=== PATIENT | female | born 1980 | race Caucasian/White ===

== ENCOUNTER 2017-02-11 20:56 | Emergency (ER) | payer SELFPAY ==
[~2017-02-11] VITALS: Ht 170.2 cm; Wt 70.0 kg
[~2017-02-11 20:56] MED LIST: CLIN150 PO; CYMB30CA PO; HYDR-3535 PO
[2017-02-11 20:59] VITALS: BP 146/86; PULSE 104; RESP 26; TEMP 98.6; O2SAT 81
[2017-02-11 21:05] VITALS: BP 145/80; PULSE 98; RESP 22; O2SAT 96
[2017-02-11 21:06] VITALS: O2SAT 97
--- NOTE | 2017-02-11 21:08 | PD ---
HPI . Shortness of breath Chief Complaint: shortness of breath Time Seen by Provider: 21:02 Travel History International Travel<30 days: No Contact w/Intl Traveler<30days: No History of Present Illness HPI Patient presents to us via private vehicle for shortness of breath. Patient reports a history of asthma. She has had symptoms last couple weeks. She states that she used an old inhaler with some relief of her symptoms. However, the inhaler has been empty for a week or so. Her symptoms have waxed and waned but became acutely worse today. She comes in complaining with severe dyspnea and with an initial oxygen saturation of about 80% on room air. Patient denies fever and denies sputum production. The patient is unaware of any exacerbating or relieving factors. 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) Past Surgical History Eye Surgery: Yes (tumor left eye as a child) Other Surgery: Yes (right arm r/t cat scratch ) Social History Alcohol Use: Yes (mix drinks occas.) Tobacco Use: Yes (4 cigs in a week) Substance Use: No Allergies-Medications (Allergen,Severity, Reaction): Coded Allergies: Penicillin (Unverified Allergy, Severe, vomiting, 12/19/15) Sulfa (Unverified Allergy, Severe, hives, 12/19/15) Reported Meds & Prescriptions Reported Meds & Active Scripts Active Lortab 10 mg/325 mg (Hydrocodone/Acetaminophen 10 mg/325 mg) 1 Tab 1 Tab PO Q4H PRN Cleocin (Clindamycin HCl) 150 Mg Cap 300 Mg PO Q8 10 Days Reported Cymbalta (Duloxetine HCl) 30 Mg Cap 60 Mg PO DAILY Review of Systems Except as stated in HPI: all other systems reviewed are Neg General / Constitutional: No: Fever, Chills Respiratory: Positive: Cough, Shortness of Breath, Wheezing Physical Exam Narrative GENERAL: Patient is anxious and in respiratory distress on arrival. SKIN: Warm and dry. HEAD: Atraumatic. Normocephalic. EYES: Pupils equal and round. Extraocular movements are intact. ENT: No nasal bleeding or discharge. Mucous membranes pink and moist. NECK: Trachea midline. Neck is supple. CARDIOVASCULAR: Regular rate and rhythm. Heart sounds are normal. RESPIRATORY: Audible wheezing. Sats of 80% on room air initially. Diffuse inspiratory and expiratory wheezing. Chest sounds very tight. GASTROINTESTINAL: Abdomen soft, non-tender, nondistended. MUSCULOSKELETAL: No obvious deformities. No edema. NEUROLOGICAL: Awake and alert. No obvious cranial nerve deficits. Motor grossly within normal limits. Normal speech. PSYCHIATRIC: Anxious appearing. Data Data Last Documented VS Vital Signs Date Time Temp Pulse Resp B/P Pulse Ox O2 Delivery O2 Flow Rate FiO2 02/11/17 21:09 96 Nasal Cannula 3 02/11/17 21:05 98 22 145/80 02/11/17 20:59 98.6 Orders Electrocardiogram (02/11/17 21:02) Basic Metabolic Panel (Bmp) (02/11/17 21:02) Complete Blood Count With Diff (02/11/17 21:02) Chest, Single Ap (02/11/17 21:02) Ecg Monitoring (02/11/17 21:02) Iv Access Insert/Monitor (02/11/17 21:02) Oximetry (02/11/17 21:02) Oxygen Administration (02/11/17 21:02) Methylprednisolone So Succ Inj (Solumedr (02/11/17 21:15) Albuterol-Ipratropium Neb (Duoneb Neb) (02/11/17 21:15) Sodium Chloride 0.9% Flush (Ns Flush) (02/11/17 21:15) Albuterol-Ipratropium Neb (Duoneb Neb) (02/11/17 22:00) Vital Signs (Adult) ANTHONY.Q4H (02/11/17 22:54) Labs Laboratory Tests Test 02/11/17 21:11 White Blood Count 11.2 TH/MM3 Red Blood Count 4.85 MIL/MM3 Hemoglobin 14.1 GM/DL Hematocrit 42.5 % Mean Corpuscular Volume 87.6 FL Mean Corpuscular Hemoglobin 29.1 PG Mean Corpuscular Hemoglobin 33.2 % Concent Red Cell Distribution Width 13.4 % Platelet Count 323 TH/MM3 Mean Platelet Volume 7.3 FL Neutrophils (%) (Auto) 52.0 % Lymphocytes (%) (Auto) 26.1 % Monocytes (%) (Auto) 7.1 % Eosinophils (%) (Auto) 14.2 % Basophils (%) (Auto) 0.6 % Neutrophils # (Auto) 5.8 TH/MM3 Lymphocytes # (Auto) 2.9 TH/MM3 Monocytes # (Auto) 0.8 TH/MM3 Eosinophils # (Auto) 1.6 TH/MM3 Basophils # (Auto) 0.1 TH/MM3 CBC Comment DIFF FINAL Differential Comment Sodium Level 139 MEQ/L Potassium Level 4.2 MEQ/L Chloride Level 102 MEQ/L Carbon Dioxide Level 28.9 MEQ/L Anion Gap 8 MEQ/L Blood Urea Nitrogen 10 MG/DL Creatinine 0.71 MG/DL Estimat Glomerular Filtration 92 ML/MIN Rate Random Glucose 134 MG/DL Calcium Level 9.4 MG/DL MDM Medical Decision Making Medical Screen Exam Complete: Yes Emergency Medical Condition: Yes Interpretation(s) EKG shows a normal sinus rhythm with no ischemic changes. Differential Diagnosis Differential diagnosis of dyspnea includes but is not limited to congestive heart failure, pneumonia, wheezing, pneumothorax, pulmonary embolism Narrative Course Patient presents complaining with severe dyspnea. She has a known history of asthma which is usually a very intermittent problem for her. She had an old inhaler she uses Ventolin was empty. She has not had any treatment for her asthma for the past week or so. [facility] dys[facility]. Chest x-ray is read as negative by the radiologist. The chest x-ray was independently viewed by me. 9:45 PM Patient has been reexamined. Her air movement is much improved. She continues to have diffuse coarse expiratory wheezing. She was on 4 L of oxygen with a sat of 99%. I have turned her oxygen down to 2 L. Sats are now 95%. I will give her another round of stacked nebs. 11:25 PM Patient is now up ambulatory in the department. She is speaking in complete sentences. Oxygen sats on room air are 93%. She still has diffuse expiratory wheezing but good air movement. Critical Care Narrative Aggregate critical care time was 45 minutes. Time to perform other separately billable procedures was not included in the critical care time. My time did not include minutes spent treating any other patients simultaneously or on activities that did not directly contribute to the patient's treatment. The services I provided to this patient were to treat and/or prevent clinically significant deterioration due to wheezing and respiratory distress I provided critical care services requiring my management, as noted below: Chart data review, documentation time, medication orders and management, vital sign assessments/reviewing monitor data, ordering and reviewing lab tests, ordering and interpreting/reviewing x-rays and diagnostic studies, care of the patient and discussion of the patient with the admitting physicians Diagnosis Primary Impression: Bronchospasm Patient Instructions: General Instructions, Wheezing (ED) Med/Other Pt SpecificInfo: Prescription(s) given Scripts Prednisone (48) 10 mg tab Dose Pack 10 Mg Dspk10 Mg PO DIRECTED #1 DSPK Ref 0 Prov:Yohana Bruno MD 02/11/17 Albuterol 18 GM Inh (Ventolin Hfa 18 GM Inh)90 Mcg/Act Aer2 Puff INH Q4H PRN ( SHORTNESS OF BREATH) #1 INHALER Ref 0 Prov:Yohana Bruno MD 02/11/17 Disposition: 01 DISCHARGE HOME Condition: Stable Yohana Bruno MD February 11, 2017 21:08
[2017-02-11 21:09] VITALS: O2SAT 96
[2017-02-11] MEDS: RESP: ALBUTEROL 2.5 MG/IPRATROPIUM 0.5 MG NEB (SCH) INH ×4 (21:09→22:30)
[2017-02-11] MEDS ORDERED: SODIUM CHLORIDE 0.9% FLUSH 10 ML FLUSH IVF PRN (21:15)
[2017-02-11] MEDS ORDERED: methylPREDNISolone SOD SUCC 125 MG/2 ML VIAL IVP ONE (21:15)
[2017-02-11 21:34] LABS: AUTOMATED NEUTROPHIL # 5.8 TH/MM3 (1.8-7.7); BASOPHIL # 0.1 TH/MM3 (0-0.2); BASOPHIL % 0.6 % (0.0-2.0); EOSINOPHIL # 1.6 TH/MM3 (0-0.4); EOSINOPHIL % 14.2 % (0.0-4.0); HEMATOCRIT 42.5 % (35.0-46.0); HEMO FLAGS DIFF FINAL; LYMPH % 26.1 % (9.0-44.0); LYMPHOCYTE # 2.9 TH/MM3 (1.0-4.8); MEAN CELL VOLUME 87.6 FL (80.0-100.0); MEAN CORPUSCULAR HEMOGLOBIN 29.1 PG (27.0-34.0); MEAN CORPUSCULAR HGB CONC 33.2 % (32.0-36.0); MONO % 7.1 % (0.0-8.0); PLATELET COUNT 323 TH/MM3 (150-450); RED BLOOD COUNT 4.85 MIL/MM3 (4.00-5.30); RED CELL DISTRIBUTION WIDTH 13.4 % (11.6-17.2); WHITE BLOOD COUNT 11.2 TH/MM3 (4.0-11.0)
--- NOTE | 2017-02-11 21:35 | RADRPT ---
EXAM DATE/TIME: 02/11/2017 21:04 [facility] COMPARISON: No previous studies available for comparison. INDICATIONS : Wheezing MEDICAL HISTORY : None. SURGICAL HISTORY : None. ENCOUNTER: Initial ACUITY: 1 day PAIN SCORE: 0/10 LOCATION: Bilateral chest FINDINGS: A single view of the chest demonstrates the lungs to be symmetrically aerated without evidence of mas s, infiltrate or effusion. The cardiomediastinal contours are unremarkable. Osseous structures are intact. CONCLUSION: No evidence of acute cardiopulmonary disease. Marvel Swann MD on February 11, 2017 at 21:33 Board Certified Radiologist. This report was verified electronically.
[2017-02-11 21:53] LABS: BICARBONATE 28.9 MEQ/L (21.0-32.0); POTASSIUM 4.2 MEQ/L (3.5-5.1)
[2017-02-11] MEDS ORDERED: PRED10PA2 PO (23:26)
[2017-02-11] MEDS ORDERED: VENTAER INH (23:26)
[2017-02-11 23:35] VITALS: BP 118/90
--- NOTE | 2017-02-12 12:00 | EKG ---
Date Performed: 02/11/2017 Time Performed: 21:28:39 PTAGE: 37 years EKG: Sinus rhythm NORMAL ECG NO PREVIOUS TRACING DOCTOR: Jamison Owens Interpretating Date/Time 02/12/2017 11:58:06
== END 2017-02-11 23:55 | disposition home or self-care (01) ==
LOC: NEPC 20:56
DX: J98.01 Acute bronchospasm (principal); R06.00 Dyspnea, unspecified; Z72.0 Tobacco use
CPT/HCPCS: 71010; 80048; 85025; 93005; 94640; 94664; 96374; 99285; J2930

== ENCOUNTER → 2017-11-10 | Emergency (ER) | payer SELFPAY ==
[~2017-11-10] VITALS: Ht 167.6 cm; Wt 67.0 kg
[~2017-11-10] MED LIST changes: +CLEO300C2 PO; +CLINDAMYCIN 150 MG CAP PO ONE; +LIDOCAINE 2%/EPINEPHrine PF 1:200,000 20ML SDV INFIL ONE; +NORC5TAB PO; +PRED10PA2 PO; +VENTAER INH; +oxyCODONE/ACETAMINOPHEN 5 MG/325 MG TAB PO ONE
[2017-11-10 18:29] VITALS: BP 142/92; PULSE 90; RESP 14; TEMP 98.2; O2SAT 100
--- NOTE | 2017-11-10 20:27 | PD ---
HPI Chief Complaint: Skin Problem Time Seen by Provider: 20:04 Travel History International Travel<30 days: No Contact w/Intl Traveler<30days: No Traveled to known affect area: No History of Present Illness HPI 37-year-old white female presents to emergency department with a 1-2 week history of a developing abscess in her vaginal area. She states the pain is moderate. No alleviating factors. No exacerbating factors. No recent illness. Denies prior abscess. Denies . PFSH Past Medical History Arthritis: Yes (NECK) Asthma: Yes Diminished Hearing: No Tetanus Vaccination: Unknown Influenza Vaccination: No ?: Unknown LMP: 07/2017 Past Surgical History Eye Surgery: Yes (tumor left eye as a child) Other Surgery: Yes (RIGHT ARM LYMPHNODE REMOVAL) Social History Alcohol Use: No Tobacco Use: Yes (4 cigs in a week) Substance Use: No Allergies-Medications (Allergen,Severity, Reaction): Coded Allergies: Sulfa (Sulfonamide Antibiotics) (Unverified Allergy, Severe, hives, ) penicillin G (Unverified Allergy, Severe, vomiting, 11/10/17) Reported Meds & Prescriptions Reported Meds & Active Scripts Active Cleocin (Clindamycin HCl) 300 Mg Cap 300 Mg PO Q6H 7 Days Huntly (Hydrocodone-Acetaminophen) 5 Mg-325 Mg Tab 1 Tab PO Q6H PRN Review of Systems Except as stated in HPI: all other systems reviewed are Neg General / Constitutional: No: Fever Eyes: No: Visual changes HENT: No: Headaches Cardiovascular: No: Chest Pain or Discomfort Respiratory: No: Shortness of Breath Gastrointestinal: No: Abdominal Pain Genitourinary: No: Dysuria Musculoskeletal: No: Pain Skin: Positive Lumps, No Rash Neurologic: No: Weakness Psychiatric: No: Depression Endocrine: No: Polydipsia Hematologic/Lymphatic: No: Easy Bruising Physical Exam Narrative The patient's examined with [facility] nurse present. GENERAL: Well-developed, well-nourished in no acute distress. Nontoxic appearing. HEAD: Normocephalic, atraumatic. EYES: Pupils equal round and reactive. Extraocular motions intact. No scleral icterus. No injection or drainage. ENT: TMs clear without erythema. The external auditory canals clear. Nose: clear . Posterior pharynx is pink and moist. No tonsillar edema or exudate. Uvula midline. Airway patent. NECK: Trachea midline.Supple, nontender, moves head freely. No central bony tenderness or spasm. CARDIOVASCULAR: Regular rate and rhythm without murmurs, gallops, or rubs. RESPIRATORY: Clear to auscultation. Breath sounds equal bilaterally. No wheezes , rales, or rhonchi. GASTROINTESTINAL: Abdomen soft, non-tender, nondistended. No hepato-splenomegaly , or palpable masses. No guarding. EXTREMITIES: No clubbing, cyanosis, or edema. No joint tenderness, effusion, or edema noted. BACK: Nontender without deformity or crepitance. No flank tenderness. Data Data Last Documented VS Vital Signs Date Time Temp Pulse Resp B/P (MAP) Pulse Ox O2 Delivery O2 Flow Rate FiO2 11/10/17 18:29 98.2 90 14 142/92 (109) 100 Orders Orders Clindamycin (Cleocin) (11/10/17 21:00) Oxycodone-Acetamin 5-325 Mg (Percocet (11/10/17 21:00) Lidoca-Epi Pf 2%-1:200,000 Inj (Xylocain (11/10/17 21:00) Ed Discharge Order (11/10/17 20:54) MDM Medical Decision Making Medical Screen Exam Complete: Yes Emergency Medical Condition: Yes Medical Record Reviewed: Yes Differential Diagnosis MDM: High Differential diagnoses: Abscess, folliculitis, cellulitis, lymphangitis, abrasion, contact dermatitis Narrative Course An incision and drainage has been performed. Patient's given Percocet 5 mg and vancomycin 300 mg by mouth. Procedures Procedure Narrative I&D abscess: The nurse of present during the physical exam and procedure. After the risks and benefits were discussed the following procedure was performed. The skin is prepped and draped in the usual sterile fashion using Betadine. The abscess is anesthetized with 1% lidocaine with epinephrine. After adequate anesthesia, an 11 blade scalpel is used to make a 1 centimeter central incision. Perulant material is expressed. A clean dressing is applied. The patient tolerated the procedure well. There was no complications. Follow-up instructions were given to the patient. Diagnosis Primary Impression: Infected cyst of Bartholin's gland duct Patient Instructions: Narcotic given in the ED, General Instructions Departure Forms: Tests/Procedures, Work Release Special Instructions: No work 11/11 and 11/12. Additional Instructions: Rest. Elevation. keep clean and dry. Sitz baths 3 times daily. Daily wound care with soap and water. Three Advil every 6 hours. Doxycycline and hydrocodone. Follow-up with a primary care doctor or a campground caretaker in one week. Return to the ER for any problems. Med/Other Pt SpecificInfo: Prescription(s) given, Wound Care Scripts Clindamycin (Cleocin) 300 Mg Cap 300 MG PO Q6H for Infection for 7 Days, #28 CAP 0 Refills Prov: Chris Morgan MD 11/10/17 Hydrocodone-Acetaminophen (Huntly) 5 Mg-325 Mg Tab 1 TAB PO Q6H Y for PAIN, #12 TAB 0 Refills Prov: Chris Morgan MD 11/10/17 Disposition: 01 DISCHARGE HOME Condition: Stable Yaniv Varma Nov 10, 2017 20:27
== END | disposition home or self-care (01) ==
LOC: NEPD 18:28
DX: N75.0 Cyst of Bartholin's gland (principal); F17.210 Nicotine dependence, cigarettes, uncomplicated
CPT/HCPCS: 56420